=== PATIENT | female | born 1980 ===

== ENCOUNTER 2019-06-19 14:38 | Outpatient (CLI) | payer OTHER | END 2019-06-19 16:34 | disposition home or self-care (01) | LOC: NST 14:38 | DX: Z34.83 Encounter for supervision of other normal pregnancy, third trimester (principal); N60.11 Diffuse cystic mastopathy of right breast ==

== ENCOUNTER 2019-07-17 12:11 | Inpatient (IN) | payer OTHER ==
[~2019-07-17] VITALS: Ht 157.5 cm; Wt 76.2 kg
[2019-08-17] MEDS ORDERED: OBSTETRIX DHA1 EACH PO (06:46)
== END 2019-08-19 11:45 | disposition home or self-care (01) | DRG 768 ==
LOC: OB/GYN 07-24 14:45 → LDR 08-17 05:26 → OB/GYN 08-17 16:37
PROVIDERS: ADMIT Obstetrics & Gynecology
PROC: 0WQF0ZZ Repair Abdominal Wall, Open Approach (ICD-10-PCS; 2019-08-17)
PROC: 0UL70ZZ Occlusion of Bilateral Fallopian Tubes, Open Approach (ICD-10-PCS; 2019-08-17)
PROC: 10907ZC Drainage of Amniotic Fluid, Therapeutic from Products of Conception, Via Natural or Artificial Opening (ICD-10-PCS; 2019-08-17)
PROC: 3E033VJ Introduction of Other Hormone into Peripheral Vein, Percutaneous Approach (ICD-10-PCS; 2019-08-17)
PROC: 4A1HXCZ Monitoring of Products of Conception, Cardiac Rate, External Approach (ICD-10-PCS; 2019-08-17)
PROC: 10E0XZZ Delivery of Products of Conception, External Approach (ICD-10-PCS; principal; 2019-08-17 15:00)
DX: O80 Encounter for full-term uncomplicated delivery (principal); Z37.0 Single live birth; Z3A.39 39 weeks gestation of pregnancy; Z22.330 Carrier of Group B streptococcus; Z30.2 Encounter for sterilization; K42.9 Umbilical hernia without obstruction or gangrene

== ENCOUNTER 2019-08-14 09:09 | Outpatient (CLI) | payer OTHER | END 2019-08-14 10:16 | disposition home or self-care (01) | LOC: NST 09:09 | DX: Z34.83 Encounter for supervision of other normal pregnancy, third trimester (principal) ==